=== PATIENT | male | born 1990 | race African-American/Black ===

== ENCOUNTER 2019-05-04 00:28 | Emergency (ER) | payer OTHER ==
[~2019-05-04] VITALS: Ht 170.2 cm; Wt 72.0 kg
[2019-05-04] MEDS ORDERED: TRAMADOL 50MG TABLET PO SCH (01:15)
[2019-05-04 01:39] VITALS: BP 158/95
== END 2019-05-04 01:47 | disposition home or self-care (01) ==
LOC: ER 00:28
DX: S60.449A External constriction of unspecified finger, initial encounter (principal); W49.04XA Ring or other jewelry causing external constriction, initial encounter; Y93.89 Activity, other specified; Y92.89 Other specified places as the place of occurrence of the external cause; Y99.8 Other external cause status
CPT/HCPCS: 99283